=== PATIENT | male | born 1960 | race African-American/Black ===

== ENCOUNTER 2018-11-01 12:15 | Inpatient (IN) ==
[2018-11-01] MEDS ORDERED: ZOFRAN IV ONE (13:23)
[2018-11-01] MEDS ORDERED: HUMULIN R IV ONE (13:23)
[2018-11-01] MEDS ORDERED: NS 1,000 ML IV ONE ×2 (13:23→14:39)
[2018-11-01 13:41] LABS: URINE SOURCE CLEAN CATCH
[2018-11-01 13:47] LABS: ALLEN TEST YES; BE -0.8 mmoll (-3.0-3.0); BLOOD TYPE ARTERIAL; METHB 1.1 % (0.0-1.5); O2(CT) 14.6 mL/dL (15.0-23.0); PCO2(98.6) 41 mmHg (35-45); PO2(98.6) 70 mmHg (60-100); SAMPLE BLOOD; SAO2 97.4 % (95.0-100.0); pH(98.6) 7.38 (7.35-7.45)
[2018-11-01 13:49] LABS: BILIRUBIN URINE NEGATIVE (NEGATIVE); BLOOD URINE NEGATIVE (NEGATIVE); COLOR YELLOW; GLUCOSE URINE >1000 mg/dL (NEGATIVE); KETONE URINE NEGATIVE (NEGATIVE); LEUKOCYTES URINE NEGATIVE (NEGATIVE); NITRITE URINE NEGATIVE (NEGATIVE); PH URINE 5.5; PROTEIN URINE NEGATIVE (NEGATIVE); SP GRAVITY URINE 1.022; TURBIDITY URINE CLEAR (CLEAR); UROBILINOGEN URINE NORMAL (NORMAL)
[2018-11-01 13:49] LABS: O2HB 86.3 % (95.0-99.0)
[2018-11-01 13:49] LABS: BASO# 0.05 X1000 (0.0-0.2); BASO% 0.5 % (0.0-0.8); EOS# 0.17 X1000 (0.0-0.7); EOS% 1.7 % (0.0-10.0); HEMATOCRIT 35.3 % (42.0-52.0); HEMOGLOBIN 11.9 g/dL (14.0-18.0); IMM GRAN# 0.02 X1000 (0.0-0.04); IMM GRAN% 0.2 % (0.0-0.5); LYMPH# 3.18 X1000 (1.2-3.4); LYMPH% 31.5 % (20.5-51.1); MCH 28.7 PG (27-31); MCHC 33.7 g/dL (33-37); MCV 85.1 FL (81-99); MONO# 0.57 X1000 (0.11-0.59); MONO% 5.6 % (1.7-9.3); MPV 12.3 FL (7.4-10.4); NEUT% 60.5 % (42.2-75.2); PLT 282 X1000 (130-400); RBC 4.15 XMIL (4.7-6.1); RDW 13.7 % (11.5-14.5); WBC 10.09 X1000 (4.8-10.8)
[2018-11-01 13:50] LABS: UR EPITHELIAL CELLS <10 /HPF (<10); URINE BACTERIA NEGATIVE /HPF; URINE RBC <10 /HPF (<10); URINE WBC <10 /HPF (<10)
[2018-11-01 13:56] LABS: INR 1.01; PROTIME 13.4 Seconds (11.0-16.0)
[2018-11-01 13:57] LABS: PTT 31.6 Seconds (22.3-41.8)
--- NOTE | 2018-11-01 14:03 | Diag Imaging Result Doc PS360 ---
EXAM: CHEST-2 VIEWS HISTORY: cough TECHNIQUE: Two views COMPARISON: 05/25/2018 FINDINGS: The lungs are well expanded. The heart is not enlarged. The vessels are not distended. There are no infiltrates. No pleural effusions. Left granuloma IMPRESSION: No pneumonia Electronically signed by Campbell Olson 11/01/2018 2:01 PM
[2018-11-01 14:28] LABS: UR AMPHETAMINES QUAL NONE DETECTED (NONE DETECT); UR BARBITUATES QUAL NONE DETECTED (NONE DETECT); UR BENZODIAZEPIN QUAL NONE DETECTED (NONE DETECT); UR CANNABINOIDS QUAL NONE DETECTED (NONE DETECT); UR COCAINE QUAL NONE DETECTED (NONE DETECT); UR METHADONE QUAL NONE DETECTED (NONE DETECT); UR OPIATES QUAL NONE DETECTED (NONE DETECT); UR OXYCODONE QUAL NONE DETECTED (NONE DETECT); UR PCP QUAL NONE DETECTED (NONE DETECT)
--- NOTE | 2018-11-01 14:41 | PROVIDER DOCUMENTATION ---
HPI-General Adult - General Chief Complaint: Weakness Stated Complaint: WEAKNESS,POSS DEHYDRATED Time Seen by Provider: 11/01/18 13:09 Source: patient Allergies/Adverse Reactions: Patient Allergies Allergy/AdvReac Type Severity Reaction Status Date / Time No Known Allergies Allergy Verified 11/01/18 13:23 Home Medications: Home Medication List Medication Instructions Recorded Confirmed Last Taken Type Insulin Novolog 70/30 [Novolog Mix 25 units SUBQ BID 01/13/14 11/01/18 3 Days Ago History 70/30] ~10/29/18 Aspirin [Aspirin EC] 81 mg PO DAILY 11/07/14 11/01/18 11/01/18 History Metformin E.r. [Glucophage Xr] 1 tab PO QAM 05/25/18 05/25/18 11/01/18 History Omeprazole 1 cap PO DAILY 05/25/18 11/01/18 11/01/18 History Pravastatin Sodium 1 tab PO DAILY 05/25/18 11/01/18 11/01/18 History Lisinopril/Hydrochlorothiazide 1 ea PO QAM 11/01/18 11/01/18 11/01/18 History [Lisinopril-Hctz 20-25 mg Tab] - History of Present Illness -Gen Adult Nature of Presenting Problems: Patient is a 58 yobm who complains of generalized weakness and productive cough x 3 weeks. Also states he has had some intermittent n/v since the onset of weakness. Hx of IDDM. Has not had his insulin in 2 days due to lack of appetite. Denies abdominal pain, fever, cp, SOB, or any other complaints. He is non-toxic in appearance. Review of Systems - Adult - REVIEW OF SYSTEMS - ADULT Constitutional: reports: no symptoms reported. denies: chills, fever Eyes: reports: no symptoms reported Ears, Nose, Mouth & Throat: reports: no symptoms reported Cardiovascular: reports: no symptoms reported Respiratory: reports: see HPI Gastrointestinal: reports: see HPI Genitourinary: reports: no symptoms reported Musculoskeletal: reports: see HPI (generalized weakness) Integumentary: reports: no symptoms reported Neurological: reports: no symptoms reported Psychiatric: reports: no symptoms reported Endocrine: reports: no symptoms reported Hematologic/Lymphatic: reports: no symptoms reported Allergic/Immunologic: reports: no symptoms reported All Other Systems: Reviewed and Negative Past History - Adult - PAST MEDICAL HISTORY-ADULT Review of Records: reports: Old Records Reviewed, Nursing Assessment Review, Medications Reviewed Major Childhood Illnesses: reports: denies history Cardiovascular: reports: HTN, hyperlipidemia Respiratory: reports: denies history Gastrointestinal: reports: cholelithiasis, GERD Obstetrical/Gynecological: reports: denies history Genitourinary: reports: denies history Musculoskeletal: reports: denies history Neurological: reports: denies history Endocrine/Immune: reports: Diabetes Diabetes controlled by:: Insulin Dependent Other Conditions: reports: denies history - PRIOR SURGERIES/PROCEDURES Surgical/Procedure History: reports: none - IMMUNIZATION STATUS Childhood Immunizations: See Nurse Assessment Flu Vaccine: See Nurse Assessment - FAMILY HISTORY Family History: reviewed, not pertinent - SOCIAL HISTORY Smoking: cigarettes, less than 1 pack/day Physical Exam-General - PHYSICAL EXAM-ADULT Initial Vital Signs Reviewed: Yes - CONSTITUTIONAL General Appearance: alert, no apparent distress. negative: lethargic, slow to respond - EYES Eyes: PERRL/EOMI, pink conjunctivae - HEAD, EARS, NOSE, MOUTH & THROAT HENMT: normocephalic/atraumatic, normal ENT inspection, TMs normal, pharynx normal - NECK Neck: full range of motion, supple, normal inspection - RESPIRATORY Respiratory: chest non-tender, lungs clear, normal breath sounds, no pleuratic chest pain, no respiratory distress, no accessory muscle use - CARDIOVASCULAR Cardiovascular: regular rate, rhythm, no gallop, no murmur - GASTROINTESTINAL (ABDOMEN) Abdominal Exam: normal bowel sounds, non tender, soft - MUSCULOSKELETAL Back Exam: normal inspection, no CVA tenderness Extremity: normal range of motion, non-tender, normal gait, normal inspection - SKIN Integumentary: normal color, warm/dry. negative: cyanosis, diaphoresis, jaundice, mottled, pallor - NEUROLOGIC Neurologic: grossly normal, no motor/sensory deficits - PSYCHIATRIC Psych/Mental Status: normal mood/affect, normal thought content, normal thought process, oriented x 3 Progress - PLAN OF CARE/RESULTS Progress/Plan/Lab Results: Vital Signs - 8 hr 11/01/18 12:19 11/01/18 14:33 Temperature 97.8 F Pulse Rate 104 H 84 Respiratory Rate 19 18 Blood Pressure 129/73 114/74 O2 Sat by Pulse Oximetry 98 100 Laboratory Results - last 24 hr 11/01/18 11/01/18 11/01/18 13:16 13:25 13:25 WBC RBC Hgb Hct MCV MCH MCHC RDW Std Deviation Plt Count MPV Immature Gran % (Auto) Neut % (Auto) Lymph % (Auto) Collier % (Auto) Eos % (Auto) Baso % (Auto) Immature Gran # (Auto) Neut # (Auto) Lymph # (Auto) Collier # (Auto) Eos # (Auto) Baso # (Auto) PT INR PTT (Actin FS) Specimen Type Sample Site pH pCO2 pO2 HCO3 Base Excess Oxyhemoglobin ABG O2 Sat (Calculated) ABG O2 Saturation ABG Carboxyhemoglobin ABG Methemoglobin Tommy Test A-a O2 Difference Total Hemoglobin Lactate FiO2 % POC Glucose 500 H D Phosphorus Troponin T Wsy-I-Mjilayehmos Pept Urine Source CLEAN CATCH Urine Color YELLOW Urine Turbidity CLEAR Urine pH 5.5 Ur Specific [place] 1.022 Urine Protein NEGATIVE Ur Glucose (Stick) >1000 A Ur Ketones (Stick) NEGATIVE Urine Blood NEGATIVE Urine Nitrite NEGATIVE Urine Bilirubin NEGATIVE Urobilinogen Dipstick NORMAL Urine Leukocytes NEGATIVE Urine WBC (Auto) <10 Urine RBC (Auto) <10 U Epithel Cells (Auto) <10 Urine Bacteria (Auto) NEGATIVE Urine Opiates Screen NONE DETECTED Ur Oxycodone Screen NONE DETECTED Ur Methadone, Qual NONE DETECTED Ur Barbiturates Screen NONE DETECTED Ur Phencyclidine Scrn NONE DETECTED Ur Amphetamines Screen NONE DETECTED U Benzodiazepines Scrn NONE DETECTED Urine Cocaine Screen NONE DETECTED U Cannabinoids Screen NONE DETECTED 11/01/18 11/01/18 11/01/18 13:38 13:38 13:38 WBC 10.09 RBC 4.15 L Hgb 11.9 L Hct 35.3 L MCV 85.1 MCH 28.7 MCHC 33.7 RDW Std Deviation 13.7 Plt Count 282 MPV 12.3 H Immature Gran % (Auto) 0.2 Neut % (Auto) 60.5 Lymph % (Auto) 31.5 Collier % (Auto) 5.6 Eos % (Auto) 1.7 Baso % (Auto) 0.5 Immature Gran # (Auto) 0.02 Neut # (Auto) 6.10 Lymph # (Auto) 3.18 Collier # (Auto) 0.57 Eos # (Auto) 0.17 Baso # (Auto) 0.05 PT INR PTT (Actin FS) Specimen Type Sample Site pH pCO2 pO2 HCO3 Base Excess Oxyhemoglobin ABG O2 Sat (Calculated) ABG O2 Saturation ABG Carboxyhemoglobin ABG Methemoglobin Tommy Test A-a O2 Difference Total Hemoglobin Lactate FiO2 % POC Glucose Phosphorus Troponin T < 0.010 Htm-X-Orbgrewcqkv Pept 45 Urine Source Urine Color Urine Turbidity Urine pH Ur Specific [place] Urine Protein Ur Glucose (Stick) Ur Ketones (Stick) Urine Blood Urine Nitrite Urine Bilirubin Urobilinogen Dipstick Urine Leukocytes Urine WBC (Auto) Urine RBC (Auto) U Epithel Cells (Auto) Urine Bacteria (Auto) Urine Opiates Screen Ur Oxycodone Screen Ur Methadone, Qual Ur Barbiturates Screen Ur Phencyclidine Scrn Ur Amphetamines Screen U Benzodiazepines Scrn Urine Cocaine Screen U Cannabinoids Screen 11/01/18 11/01/18 11/01/18 13:38 13:38 13:45 WBC RBC Hgb Hct MCV MCH MCHC RDW Std Deviation Plt Count MPV Immature Gran % (Auto) Neut % (Auto) Lymph % (Auto) Collier % (Auto) Eos % (Auto) Baso % (Auto) Immature Gran # (Auto) Neut # (Auto) Lymph # (Auto) Collier # (Auto) Eos # (Auto) Baso # (Auto) PT 13.4 INR 1.01 PTT (Actin FS) 31.6 Specimen Type ARTERIAL Sample Site R RADIAL pH 7.38 pCO2 41 pO2 70 HCO3 24.0 Base Excess -0.8 Oxyhemoglobin 86.3 L* ABG O2 Sat (Calculated) 14.6 L ABG O2 Saturation 97.4 ABG Carboxyhemoglobin 10.30 H* ABG Methemoglobin 1.1 Tommy Test YES A-a O2 Difference 28.0 Total Hemoglobin 12.0 Lactate 1.10 FiO2 % 21.0 POC Glucose Phosphorus 4.9 H Troponin T Njd-M-Hzkamomvkjl Pept Urine Source Urine Color Urine Turbidity Urine pH Ur Specific [place] Urine Protein Ur Glucose (Stick) Ur Ketones (Stick) Urine Blood Urine Nitrite Urine Bilirubin Urobilinogen Dipstick Urine Leukocytes Urine WBC (Auto) Urine RBC (Auto) U Epithel Cells (Auto) Urine Bacteria (Auto) Urine Opiates Screen Ur Oxycodone Screen Ur Methadone, Qual Ur Barbiturates Screen Ur Phencyclidine Scrn Ur Amphetamines Screen U Benzodiazepines Scrn Urine Cocaine Screen U Cannabinoids Screen Orders Category Date Time Status Cardiac Monitoring DIRECTED Care 11/01/18 13:23 Active Nursing- Obtain EKG ONCE Care 11/01/18 13:23 Active CHEST-2 VIEWS [RAD] Stat Exams 11/01/18 13:23 Completed ABG [RESP] Routine Lab 11/01/18 13:45 Completed ACETONE SERUM [CHEM] Stat Lab 11/01/18 13:38 Received BNP [PRO B-NATRIURETIC PEPTIDE] Stat Lab 11/01/18 13:38 Completed CBC WITH DIFF [HEME] Stat Lab 11/01/18 13:38 Completed COMPREHENSIVE METABOLIC PANEL [CHEM] Stat Lab 11/01/18 13:38 Received MAGNESIUM [CHEM] Stat Lab 11/01/18 13:38 Received PHOSPHORUS [CHEM] Stat Lab 11/01/18 13:38 Completed PROTIME WITH INR [COAG] Stat Lab 11/01/18 13:38 Completed PTT [COAG] Stat Lab 11/01/18 13:38 Completed TROPONIN T Stat Lab 11/01/18 13:38 Completed UA NIMS W/REFLEX CULT [URINALYSIS] Stat Lab 11/01/18 13:25 Completed URINE DRUG SCREEN Stat Lab 11/01/18 13:25 Completed 0.9% Sodium Chloride Inj [Ns] 1,000 ml Med 11/01/18 13:23 Discontinued IV 999 mls/hr Insulin Human Regular [Humulin R] Med 11/01/18 13:23 Discontinued 10 unit IV NOW ONE Ondansetron [Zofran] Med 11/01/18 13:23 Discontinued 4 mg IV NOW ONE Result Diagrams: 11/01/18 13:38 11/01/18 13:38 - REASSESSMENT Reassessment #1 Time Reassessed: 15:32 Status: other (Pt in agreement with admission plan.) - XRAY 1 XRAY Study: Chest ([facility] - [address] , [address] [address] [facility] - [address] [place] [address] Department of Imaging Patient: MARTIN SANTIZOADM Date: 11/01/18MR#: [id number] : 1960ADM Status: PRE ERAcct#: [id number] Age/Sex: 58/MRoom/Bed: Loc: ED Ordering Physician: Julio Reardon Family Physician: David Carpenter MD Reason for Procedure: cough Signed EXAM: CHEST-2 VIEWS HISTORY: cough TECHNIQUE: Two views COMPARISON: 05/25/2018 FINDINGS: The lungs are well expanded. The heart is not enlarged. The vessels are not distended. There are no infiltrates. No pleural effusions. 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 Qualified Code(s): E11.65 - Type 2 diabetes mellitus with hyperglycemia Nausea and vomiting Qualifiers: Vomiting type: unspecified Vomiting Intractability: non-intractable Qualified Code(s): R11.2 - Nausea with vomiting, unspecified Disposition: ADMITTED INPATIENT 09 Certified Medical Emergency: Emergent Condition: Stable Referrals and Follow-Ups: David Carpenter MD [Primary Care Provider] - Discharge Education: Steps to Quit Smoking, [id number] - Critical Care Note This patient required my direct & personal management of CC.: No Attestation - Physician/ MARTIN Attestation Patient care was provided by Advanced Practice Provider:: Yes Advanced Practice Provider:: Julio Reardon Advanced Practice Provider documentation review:: The Mid-level provider documentation, treatment plan and medical decision making was reviewed by the physician who agrees with all treatment and medical decision making by the MLP. The physician spent face to face time with patient:: No Advanced Practice Provider documentation review:: Supervising physician onsite a nd consulted in the evaluation and care of this patient. The physician did not have a face to face encounter with the patient.
[2018-11-01 14:48] LABS: AGAP 16; ALB/GLOB RATIO 1.8; ALBUMIN 4.5 g/dL (3.5-5.0); ALKALINE PHOSPHATASE 122 U/L (32-122); BUN 38 mg/dL (8-22); CALCIUM 9.6 mg/dL (8.8-10.2); CHLORIDE 90 mmol/L (98-107); COSMO 300; CREATININE 2.3 mg/dL (0.7-1.2); ESTIMATED GFR 35; GLUCOSE 676 mg/dL (70-104); GOT 9 U/L (10-34); GPT 8 U/L (10-44); MAGNESIUM 2.2 mg/dL (1.5-2.7); POTASSIUM 4.9 mmol/L (3.5-5.1); SODIUM 129 mmol/L (136-145); TCO2 23 mmol/L (25-35); TOTAL BILIRUBIN 0.45 mg/dL (0.20-1.00)
[2018-11-01] MEDS ORDERED: POTASSIUM CHLORIDE 20% LIQUID PO ONE (14:52)
[2018-11-01 15:01] LABS: ACETONE SERUM NEGATIVE (NEGATIVE)
[2018-11-01] MEDS ORDERED: TYLENOL PO PRN (16:23)
[2018-11-01] MEDS ORDERED: ZOFRAN IV PRN (16:23)
[2018-11-01] MEDS ORDERED: HUMALOG SUBQ PRN (16:23)
[2018-11-01] MEDS: NS 1,000 ML IV SCH ×3 (16:44→23:29)
--- NOTE | 2018-11-01 16:47 | HISTORY AND PHYSICAL ---
PRIMARY CARE PHYSICIAN: Dr. Carpenter. CHIEF COMPLAINT: Generalized weakness and a productive cough for 3 weeks. Also states he has had no insulin for the past 2 days due to having a decreased appetite. HISTORY OF PRESENTING ILLNESS: This is a 58-year-old male who presents to [facility] with complaints of generalized weakness and a productive cough for 3 weeks. States that he has not had his insulin in 2 days due to a decreased appetite. Also states he has had some intermittent nausea and vomiting since the onset of the weakness. When he arrived to the emergency room, he was noted to have a glucose of 676, sodium of 129, BUN of 38, creatinine 2.3, anion gap was 16. His acetone level was negative. Urine drug screen was negative. ABG showed a pCO2 of 41, PO2 70 on room air. He will be admitted for further evaluation and treatment. PAST MEDICAL HISTORY: Hypertension, hyperlipidemia, GERD, and diabetes type 2. PAST SURGICAL HISTORY: None. FAMILY HISTORY: Reviewed and noncontributory. SOCIAL HISTORY: He currently lives with family. Smokes a pack and a half of cigarettes a day. Drinks 2 to 3 beers and several shots of liquor on the weekends, Thursday through Thursday. Denied any illicit drug use. ALLERGIES: He has no known drug allergies. HOME MEDICATIONS: He takes aspirin 81 mg p.o. daily, NovoLog 70/30 25 units subcutaneous b.i.d.. We will hold his lisinopril/hydrochlorothiazide 20/25 1 p.o. q.a.m. and his Glucophage XR 500 mg p.o. q.a.m. We will continue his omeprazole 40 mg p.o. daily and pravastatin 40 mg p.o. daily. LABORATORY DATA: Showed a white blood cell count of 10.09, hemoglobin 11.9, hematocrit 35.3, platelets 282,000. PT and INR of 13.4 and 1.01. ABG showed a pH of 7.38, pCO2 41, PO2 70, bicarb 24. Sodium 129, potassium 4.9, chloride 90, CO2 23, BUN of 38, creatinine 2.3, glucose 676, magnesium 2.2, phosphorus 4.9. Urinalysis was negative. Urine drug screen showed none detected. Acetone level was negative. Chest x-ray showed no pneumonia. REVIEW OF SYSTEMS: He denied any fever, chills, blurred vision, dizziness. He did have generalized weakness. Denied any chest pain. He had a productive cough. No shortness of breath. No abdominal pain. Nausea, vomiting was positive intermittently. Denied any burning or hurting with urination. He did have a decreased appetite as well. PHYSICAL EXAMINATION: VITAL SIGNS: On arrival he had a temperature of 97.8 degrees, pulse 104, respirations 19, blood pressure 129/73, saturating 98% on room air. GENERAL: This is a 58-year-old male who is lying in the bed and answers questions appropriately. HENT: Normocephalic, atraumatic. Normal ENT inspection. Oropharynx and nares are clear. EYES: Pupils are equal, round, and reactive to light and accommodation. Extraocular movements are intact. NECK: Normal inspection. Normal range of motion. LUNGS: Clear to auscultation bilaterally with equal lung expansion and chest wall movement. HEART: With regular rate and rhythm. No murmurs, rubs, or gallops. ABDOMEN: Soft, nontender, nondistended. Bowel sounds are present x4 quadrants. MUSCULOSKELETAL: He has 5/5 strength x4 extremities. NEUROLOGICAL: The cranial nerves 2-12 are grossly intact. ASSESSMENT: 1. Diabetes type 2, uncontrolled with hyperglycemia. 2. Hyponatremia. 3. Acute kidney injury. 4. Ethanol abuse. 5. Tobacco abuse. PLAN: He will be admitted to the PVC unit, placed on telemetry, diabetic diet. We will do fingerstick blood sugars q.4 hours with sliding scale insulin. We will apply SCDs for DVT prophylaxis. We will continue home medications as previously identified. Place on normal saline at 125 mL an hour. Recheck CBC and BMP in the a.m. and we will check a hemoglobin A1c today. Further orders after seen by attending. Dictated by GILLIAN García for Grisel Ware MD cc: GILLIAN García MD Wayne E. Thomas, MD I performed a face to face encounter on the patient. I reviewed all labs and imaging on the patient. I agree with the H&P as dictated. Mr. Lopez is a 58 year old male with a history of insulin dependent diabetes mellitus who presented to the ER with a chief complaint of generalized weakness, nausea, vomiting, and abdominal pain. In the Er, the patient was noted to have a blood glucose of 676 and creatinine of 2.3. On exam, the patient is alert and oriented x 3. His lungs are clear to auscultation bilaterally. No peripheral edema. The patient will be started on long acting insulin with sliding scale insulin coverage. Will also start IVF fluid. Will monitor blood glucose levels every 4 hours. MTDD
--- NOTE | 2018-11-01 18:10 | EKG Report ---
Test Performed on : 11/01/2018 1:27:26 PM Test Reason : blood surgar Blood Pressure : / mmHG Vent. Rate : 087 BPM Atrial Rate : 087 BPM P-R Int : 168 ms QRS Dur : 072 ms QT Int : 356 ms P-R-T Axes : 073 -07 047 degrees QTc Int : 428 ms Normal sinus rhythm. Possible Left atrial enlargement Borderline ECG When compared with ECG of 25-MAY-2018 19:58, No significant change was found Unconfirmed Result
[2018-11-01 18:32] LABS: HEMOGLOBIN A1C 13.7 % (4.8-6.0)
[2018-11-01] MEDS ORDERED: INSULIN PEN NEEDLES ONE (19:45)
[2018-11-01 20:09] LABS: ALBUMIN 4.1 g/dL (3.5-5.0); CALCIUM 9.5 mg/dL (8.8-10.2); CREATININE 1.9 mg/dL (0.7-1.2)
[2018-11-01 20:29] LABS: POTASSIUM 4.1 mmol/L (3.5-5.1)
[2018-11-01] MEDS ORDERED: HUMULIN R SUBQ SCH (21:00)
[2018-11-01] MEDS ORDERED: NOVOLOG MIX 70/30 SUBQ SCH ×2 (21:00)
[2018-11-02] MEDS ORDERED: HUMULIN R SUBQ SCH (01:00)
[2018-11-02 03:46] LABS: ALLEN TEST YES; BE 0.1 mmoll (-3.0-3.0); BLOOD TYPE ARTERIAL; HCO3-(ACT) 24.9 mmoll (20.0-26.0); METHB 1.1 % (0.0-1.5); O2(CT) 14.6 mL/dL (15.0-23.0); O2HB 93.4 % (95.0-99.0); PCO2(98.6) 43 mmHg (35-45); PO2(98.6) 73 mmHg (60-100); SAMPLE BLOOD; SAO2 97.9 % (95.0-100.0); THB 11.1 g/dL (11.5-17.4); pH(98.6) 7.38 (7.35-7.45)
[2018-11-02 03:49] LABS: MODALITY ROOM AIR
[2018-11-02 05:28] LABS: BASO# 0.07 X1000 (0.0-0.2); BASO% 0.7 % (0.0-0.8); EOS# 0.35 X1000 (0.0-0.7); EOS% 3.5 % (0.0-10.0); HEMATOCRIT 33.4 % (42.0-52.0); HEMOGLOBIN 10.9 g/dL (14.0-18.0); IMM GRAN# 0.02 X1000 (0.0-0.04); IMM GRAN% 0.2 % (0.0-0.5); LYMPH# 3.42 X1000 (1.2-3.4); LYMPH% 34.5 % (20.5-51.1); MCH 28.2 PG (27-31); MCHC 32.6 g/dL (33-37); MCV 86.3 FL (81-99); MONO# 0.51 X1000 (0.11-0.59); MONO% 5.2 % (1.7-9.3); MPV 12.1 FL (7.4-10.4); NEUT# 5.53 X1000 (1.4-6.5); NEUT% 55.9 % (42.2-75.2); PLT 261 X1000 (130-400); RBC 3.87 XMIL (4.7-6.1); RDW 13.7 % (11.5-14.5)
[2018-11-02] MEDS: HUMULIN R SUBQ SCH ×4 (05:50→18:06)
[2018-11-02 05:55] LABS: CALCIUM 9.3 mg/dL (8.8-10.2); CREATININE 1.6 mg/dL (0.7-1.2)
[2018-11-02] MEDS: NS 1,000 ML IV SCH ×2 (06:30→14:57)
[2018-11-02] MEDS ORDERED: ASPIRIN EC PO SCH (09:00)
[2018-11-02] MEDS ORDERED: PRILOSEC PO SCH (09:00)
[2018-11-02] MEDS ORDERED: PRAVACHOL PO SCH (09:00)
[2018-11-02] MEDS ORDERED: NOVOLOG MIX 70/30 SUBQ SCH (09:00)
[2018-11-02 16:21] VITALS: BP 120/72
--- NOTE | 2018-11-02 18:09 | DISCHARGE SUMMARY ---
ADMISSION DATE: 11/01/2018 DISCHARGE DATE: 11/02/2018 PRIMARY CARE PHYSICIAN: Dr. David Carpenter. HISTORY: This is a 58-year-old with a productive cough for 3 weeks. States he has had no insulin for 2 days, having a decreased appetite. He recently had an abscess on his leg and it was incised. This is a 58-year-old who presented to [facility] with complaints of generalized weakness and a productive cough for 3 weeks. States he has not had insulin in 2 days due to decreased appetite. Also states he has had some intermittent nausea and vomiting since the onset of weakness. He arrived in the emergency room. He was noted to have a glucose of 676, sodium 129, BUN 38, creatinine 2.3, anion gap 16. Acetone level was negative. Urine drug screen was negative. ABG showed a pCO2 of 41, pCO2 of 70 on room air. So admitted for further evaluation, hyperglycemia. PAST MEDICAL HISTORY: Hypertension, hyperlipidemia, gastroesophageal reflux disease, diabetes mellitus, type 2. No history of surgical problems. HOSPITAL COURSE: The patient was put back on his medication, put on a diabetic diet. The sugars seemed to drop down nicely, between 100 and 270. He felt good and wanted to go home. So plan discharge him home. DISCHARGE MEDICATIONS: He will be back on his insulin, aspirin 81 mg a day, NovoLog 70/30 25 units subcutaneous b.i.d., lisinopril hydrochlorothiazide 20/25 one a day, metformin ER 1 tablet daily, omeprazole 1 capsule daily, and pravastatin 1 tab daily. FOLLOW UP: He is to follow up with his primary care. cc: Tommy Medina MD
== END 2018-11-02 19:00 | disposition home or self-care (01) | DRG 638 ==
LOC: ED 12:15 → 2N 12:16 → SUATTDRO 12:16
PROVIDERS: ATTEND Emergency Medicine